=== PATIENT | female | born 1960 | race Caucasian/White ===

== ENCOUNTER 2024-05-15 16:12 | Inpatient (IN) | payer BC ==
[2024-05-15 16:43] VITALS: BMI 23.5
[2024-05-15] MEDS ORDERED: BENZONATATE 200 MG CAPSULE PO PRN (17:24)
[2024-05-15] MEDS ORDERED: BISMUTH SUBSALICYLATE 524 MG/30 ML PO PRN (17:24)
[2024-05-15] MEDS ORDERED: MAGNESIUM HYDROX 2400MG/30ML ORAL SUSPENSION 30 ML CUP PO PRN (17:24)
[2024-05-15] MEDS ORDERED: guaiFENesin 600 MG TABLET.ER (FP) PO PRN (17:24)
[2024-05-15] MEDS ORDERED: LOPERAMIDE HCL 2 MG CAPSULE PO PRN (17:24)
[2024-05-15] MEDS ORDERED: BENZOCAINE/MENTHOL (CHLORASEPTIC ) LOZENGE MM PRN (17:24)
[2024-05-15] MEDS ORDERED: IBUPROFEN 400 MG TABLET (FP) PO PRN (17:24)
[2024-05-15] MEDS ORDERED: ONDANSETRON *ODT* 4 MG TABLET SL PRN (17:24)
[2024-05-15] MEDS ORDERED: MAG HYDROX/AL HYDROX/SIMETH 30 ML UNIT-DOSE CUP PO PRN (17:24)
[2024-05-15] MEDS ORDERED: DICYCLOMINE HCL 10 MG CAPSULE PO PRN (17:24)
[2024-05-15] MEDS ORDERED: POLYETHYLENE GLYCOL (HEALTHYLAX) 3350 17 GM PACKET PO PRN (17:24)
[2024-05-15] MEDS ORDERED: IBUPROFEN 600 MG TABLET (FP) PO PRN (17:24)
[2024-05-15] MEDS: METHOCARBAMOL 500 MG TABLET PO PRN (19:10)
[2024-05-15] MEDS: hydrOXYzine PAMOATE 25 MG CAPSULE (FP) PO PRN (19:11)
[2024-05-15] MEDS: METOPROLOL TARTRATE 25 MG TABLET (FP) PO ONE (19:29)
[2024-05-15] MEDS: amLODIPine BESYLATE 5 MG TABLET (FP) PO ONE (22:17)
[2024-05-15] MEDS: THIAMINE 100 MG TABLET PO SCH (22:17)
[2024-05-15] MEDS: FAMOTIDINE 20 MG TABLET PO SCH (22:17)
[2024-05-15] MEDS: ATORVASTATIN CA 10 MG TABLET (FP) PO SCH (22:18)
[2024-05-15] MEDS: MELATONIN 5 MG TABLETS PO SCH (22:18)
[2024-05-15] MEDS: ACETAMINOPHEN 325 MG TABLET (FP) PO PRN (22:18)
[2024-05-16 09:43] VITALS: RESP 18
[2024-05-16] MEDS: PRENATAL VITAMINS W/ FOLIC ACID TABLET (FP) PO SCH (09:46)
[2024-05-16] MEDS: LOSARTAN POTASSIUM 25 MG TABLET PO SCH (09:46)
[2024-05-16 11:38] LABS: HEMATOCRIT 35.1 % (32.4-45.2); MCH 32.1 pg (25.7-33.7); MCHC 34.1 g/dl (32.0-36.0); MEAN CELL VOLUME 94.2 fl (80-96); MEAN PLT VOLUME 8.5 fl (7.5-11.1); PLATELET COUNT 246 10^3/uL (134-434); RBC 3.73 M/mm3 (3.60-5.2); RDW 13.9 % (11.6-15.6); WHITE BLOOD COUNT 5.4 K/mm3 (4.0-10.0)
[2024-05-16 12:05] LABS: BLOOD UREA NITROGEN 6.7 mg/dL (7-18)
[2024-05-16 12:06] LABS: ALBUMIN 3.7 g/dl (3.4-5.0); BILIRUBIN,TOTAL 0.9 mg/dL (0.2-1)
[2024-05-16 12:07] LABS: CALCIUM 9.7 mg/dL (8.5-10.1); TOT PROT 6.8 g/dl (6.4-8.2)
[2024-05-16 12:08] LABS: CREATININE 0.7 mg/dL (0.55-1.3)
[2024-05-16] MEDS: NALTREXONE HCL 50 MG TABLET PO SCH (12:39)
[2024-05-16 12:54] VITALS: BP 146/95; PULSE 90; TEMP 98.4
[2024-05-16] MEDS ORDERED: FAMOTIDINE 20 MG TABLET PO SCH (16:00)
[2024-05-17] MEDS ORDERED: LOSARTAN POTASSIUM 50 MG TABLET PO SCH (10:00)
== END 2024-05-16 13:23 | disposition home or self-care (01) | DRG 775 ==
LOC: YASAS 16:12 → Y6N 17:40
PROVIDERS: ADMIT Allergy & Immunology; ATTEND Surgery
PROC: HZ2ZZZZ Detoxification Services for Substance Abuse Treatment (ICD-10-PCS; principal; 2024-05-15)
DX: F10.230 Alcohol dependence with withdrawal, uncomplicated (principal); I10 Essential (primary) hypertension; E78.5 Hyperlipidemia, unspecified; K21.9 Gastro-esophageal reflux disease without esophagitis; Z56.0 Unemployment, unspecified
CPT/HCPCS: 36415; 80053; 80305; 80307; 81025; 85027; 86780; 93005; 93010

== ENCOUNTER 2025-07-18 10:31 | Inpatient (IN) | payer BC ==
[2025-07-18 10:54] VITALS: BMI 25.8
[2025-07-18] MEDS ORDERED: NALOXONE (NARCAN) HCL 4 MG/0.1 ML SPRAY NS PRN (11:27)
[2025-07-18] MEDS ORDERED: BENZOCAINE/MENTHOL (CHLORASEPTIC ) LOZENGE MM PRN (11:27)
[2025-07-18] MEDS ORDERED: DICYCLOMINE HCL 10 MG CAPSULE PO PRN (11:27)
[2025-07-18] MEDS ORDERED: BENZONATATE 200 MG CAPSULE PO PRN (11:27)
[2025-07-18] MEDS ORDERED: MAGNESIUM HYDROX 2400MG/30ML ORAL SUSPENSION 30 ML CUP PO PRN (11:27)
[2025-07-18] MEDS ORDERED: guaiFENesin 600 MG TABLET.ER (FP) PO PRN (11:27)
[2025-07-18] MEDS ORDERED: BISMUTH SUBSALICYLATE 524 MG/30 ML PO PRN (11:27)
[2025-07-18] MEDS ORDERED: IBUPROFEN 400 MG TABLET (FP) PO PRN (11:27)
[2025-07-18] MEDS ORDERED: POLYETHYLENE GLYCOL (HEALTHYLAX) 3350 17 GM PACKET PO PRN (11:27)
[2025-07-18] MEDS ORDERED: LOPERAMIDE HCL 2 MG CAPSULE PO PRN (11:27)
[2025-07-18] MEDS: NALTREXONE HCL 50 MG TABLET PO ONE (12:16)
[2025-07-18] MEDS: IBUPROFEN 600 MG TABLET (FP) PO PRN (13:51)
[2025-07-18] MEDS: ONDANSETRON *ODT* 4 MG TABLET SL PRN (17:01)
[2025-07-18] MEDS: MELATONIN 5 MG TABLETS PO SCH (22:12)
[2025-07-18] MEDS: MAG HYDROX/AL HYDROX/SIMETH 30 ML UNIT-DOSE CUP PO PRN (22:12)
[2025-07-18] MEDS: THIAMINE 100 MG TABLET PO SCH (22:12)
[2025-07-18] MEDS: ACETAMINOPHEN 325 MG TABLET (FP) PO PRN (23:12)
[2025-07-19 10:02] LABS: MCHC 32.3 g/dl (32.2-35.5); MEAN CELL VOLUME 93.3 fl (79.4-94.8); MEAN PLT VOLUME 10.0 fl (9.4-12.3); RDW 13.0 % (12.4-16.4)
[2025-07-19] MEDS: PRENATAL VITAMINS W/ FOLIC ACID TABLET (FP) PO SCH (10:20)
[2025-07-19] MEDS: NALTREXONE HCL 50 MG TABLET PO SCH (10:20)
[2025-07-19] MEDS: LOSARTAN POTASSIUM 25 MG TABLET PO SCH (10:22)
[2025-07-19 10:32] LABS: GLUCOSE,RANDOM 106.0 mg/dL (74-106); TOT PROT 7.2 g/dl (6.4-8.2)
[2025-07-19 10:33] LABS: CO2 26.0 mmol/L (21-32)
[2025-07-19 10:35] LABS: ALK PHOS 85.0 U/L (40-150)
[2025-07-19 10:37] LABS: SGOT/AST 32.0 U/L (5-34); SGPT/ALT 21.0 U/L (0-55)
[2025-07-19 10:38] LABS: CREATININE 0.55 mg/dL (0.55-1.3)
[2025-07-19] MEDS: METHOCARBAMOL 500 MG TABLET PO PRN (22:28)
[2025-07-20] MEDS: hydrOXYzine PAMOATE 25 MG CAPSULE (FP) PO PRN (17:24)
[2025-07-21 09:54] VITALS: PULSE 87; RESP 18; TEMP 97.6
[2025-07-21 14:03] VITALS: BP 116/83
== END 2025-07-21 12:37 | disposition home or self-care (01) | DRG 775 ==
LOC: SUATTDRO 10:31 → YASAS 10:31 → Y6N 11:41
PROVIDERS: ADMIT Family Medicine; ATTEND Student in an Organized Health Care Education/Training Program
PROC: HZ2ZZZZ Detoxification Services for Substance Abuse Treatment (ICD-10-PCS; principal; 2025-07-18)
DX: F10.230 Alcohol dependence with withdrawal, uncomplicated (principal); F10.282 Alcohol dependence with alcohol-induced sleep disorder; F10.24 Alcohol dependence with alcohol-induced mood disorder; F32.9 Major depressive disorder, single episode, unspecified; E78.5 Hyperlipidemia, unspecified; I10 Essential (primary) hypertension; K21.9 Gastro-esophageal reflux disease without esophagitis
CPT/HCPCS: 36415; 80053; 80305; 80307; 85027; 86780; 93005; 93010; Q0162